=== PATIENT | female | born 1975 | race African-American/Black ===

== ENCOUNTER 2020-01-06 00:06 | Emergency (ER) | payer MEDICAID ==
[~2020-01-06] VITALS: Ht 165.1 cm; Wt 76.0 kg
[2020-01-06] MEDS ORDERED: ONDANSETRON HCL 4MG/2ML INJ IV STA (00:28)
[2020-01-06] MEDS ORDERED: KETOROLAC 30MG/ML VIAL IV STA (00:28)
[2020-01-06] MEDS ORDERED: SODIUM CHLORIDE 0.9% 1,000 ML IV ONE (00:30)
[2020-01-06 00:50] LABS: CLARITY URINE CLOUDY (CLEAR); COLOR URINE YELLOW (YELLOW); KETONES URINE NEGATIVE (NEGATIVE); LEUKOCYTE ESTERASE URINE 1+ (NEGATIVE); NITRITE URINE NEGATIVE (NEGATIVE); OCCULT BLOOD URINE NEGATIVE (NEGATIVE); PH URINE 5.5 (4.5-8.0); PROTEIN URINE TRACE (NEGATIVE); SPECIFIC GRAVITY URINE 1.019 (1.005-1.030)
[2020-01-06 00:51] LABS: BASOPHILS % 0.1 % (0.0-2.0); HEMATOCRIT. 32.5 % (36.0-48.0); HEMOGLOBIN. 11.3 g/dL (12.0-16.0); LYMPHOCYTES % 62.7 % (20.0-50.0); MEAN CORPUSCULAR HEMOGLOBIN 27.7 pg (28.0-32.0); MEAN CORPUSCULAR VOLUME 79.8 fL (81.0-99.0); MEAN PLATELET VOLUME 7.5 fl (7.4-10.4); MONOCYTES % 11.2 % (2.0-8.0); PLATELET 250 x1000/uL (130-400); RED BLOOD CELL COUNT 4.07 mill/uL (4.2-5.4); RED CELL DISTRIBUTION WIDTH 12.7 % (11.6-14.6)
[2020-01-06 00:53] LABS: CHLORIDE 104 mEq/L (98-107)
[2020-01-06 03:43] VITALS: BP 118/63
== END 2020-01-06 04:21 | disposition home or self-care (01) ==
LOC: ER 00:09
DX: N12 Tubulo-interstitial nephritis, not specified as acute or chronic (principal); N39.0 Urinary tract infection, site not specified; Z98.890 Other specified postprocedural states
CPT/HCPCS: 36415; 74176; 80053; 81003; 81025; 83690; 85025; 93005; 96361; 96374; 96375; 99285; J1885; J2405; J7030